=== PATIENT | male | born 1965 | race Caucasian/White ===

== ENCOUNTER 2018-10-12 08:21 | Day surgery (SDC) | payer BC, OTHER ==
[2018-10-12] MEDS ORDERED: LACTATED RINGERS 1,000 ML IV ONE (08:51)
[2018-10-12] MEDS ORDERED: MIDAZOLAM 2 MG/2 ML VIAL IVP ONE (10:06)
[2018-10-12] MEDS ORDERED: fentaNYL 250 MCG/5 ML VIAL IVP ONE (10:06)
[2018-10-12 11:35] VITALS: BP 127/88
== END 2018-10-12 08:22 | disposition home or self-care (01) ==
LOC: SDS 08:21
PROVIDERS: ATTEND Surgery
PROC: 0DJD8ZZ Inspection of Lower Intestinal Tract, Via Natural or Artificial Opening Endoscopic (ICD-10-PCS; principal; 2018-10-12 09:45)
DX: Z12.11 Encounter for screening for malignant neoplasm of colon (principal); K57.30 Diverticulosis of large intestine without perforation or abscess without bleeding; K64.8 Other hemorrhoids; Z80.9 Family history of malignant neoplasm, unspecified
CPT/HCPCS: 45378; J3010; J7120

== ENCOUNTER 2019-12-05 08:00 | Outpatient (CLI) | payer BC ==
[2019-12-05 11:56] LABS: BASOPHILS # (AUTO) 0.1 10^3/uL (0.0-0.1); BASOPHILS % (AUTO) 0.9 %; EOSINOPHILS # (AUTO) 0.2 10^3/uL (0.0-0.7); EOSINOPHILS % (AUTO) 2.7 %; HGB - HEMOGLOBIN 14.8 g/dL (14.0-18.0); LYMPHOCYTES # (AUTO) 1.1 10^3/uL (1.5-3.5); LYMPHOCYTES % (AUTO) 19.3 %; MEAN CORPUSCULAR HEMOGLOBIN 28.6 pg (27.0-31.0); MEAN CORPUSCULAR HGB CONC 33.2 g/dL (32.0-36.0); MEAN CORPUSCULAR VOLUME 86.3 fL (80.0-94.0); MEAN PLATELET VOLUME 11.2 fL (7.4-11.4); MONOCYTES # (AUTO) 0.4 10^3/uL (0.0-1.0); MONOCYTES % (AUTO) 7.9 %; NEUTROPHILS # (AUTO) 3.8 10^3/uL (1.5-6.6); NEUTROPHILS % (AUTO) 68.8 %; PLT - PLATELET COUNT 229 10^3/uL (130-450); RED BLOOD COUNT 5.17 10^6/uL (4.70-6.10); RED CELL DISTRIBUTION WIDTH 13.1 % (12.0-15.0); WHITE BLOOD COUNT 5.5 x10^3/uL (4.8-10.8)
[2019-12-05 12:13] LABS: ALBUMIN 4.5 g/dL (3.2-5.5); ALKALINE PHOSPHATASE 54 IU/L (42-121); ALT ALANINE AMINOTRANSFERASE 39 IU/L (10-60); AST ASPARTATE AMINOTRANSFERASE 29 IU/L (10-42); BILIRUBIN,TOTAL 0.9 mg/dL (0.2-1.0); BUN - BLOOD UREA NITROGEN 20 mg/dL (6-20); CALCIUM 9.2 mg/dL (8.5-10.3); CARBON DIOXIDE - CO2 26 mmol/L (21-32); CHLORIDE 104 mmol/L (101-111); CHOL/HDL RATIO 4.4 (<5.0); CHOLESTEROL 206 mg/dL; GLUCOSE 113 mg/dL (70-100); HDL CHOLESTEROL 47 mg/dL; LDL CHOLESTEROL,CALCULATED 123 mg/dL; LDL/HDL RATIO 2.6 (<3.6); SODIUM 139 mmol/L (135-145); TOTAL PROTEIN 6.8 g/dL (6.7-8.2); VLDL CHOLESTEROL 36 mg/dL
== END 2019-12-05 23:59 | disposition home or self-care (01) ==
LOC: LAB.WCP 08:00
PROVIDERS: ATTEND Family Medicine
DX: E78.5 Hyperlipidemia, unspecified (principal); R73.9 Hyperglycemia, unspecified; Z12.5 Encounter for screening for malignant neoplasm of prostate
CPT/HCPCS: 36415; 80053; 80061; 83721; 84153; 84443; 85025

== ENCOUNTER 2020-04-25 14:38 | Emergency (ER) | payer BC ==
[2020-04-25] MEDS ORDERED: ASPIRIN CHEW 81 MG TABLET PO STA (14:46)
[2020-04-25] MEDS ORDERED: NITROGLYCERIN SL 0.4 MG TABLET SL STA (14:46)
--- NOTE | 2020-04-25 14:49 | ED Physician Documentation ---
PD HPI CHEST PAIN - Stated complaint Stated Complaint: CPSOA - Chief complaint Chief Complaint: Cardiac - History obtained from History obtained from: Patient - Additional information Additional information: Had substernal chest pressure with shortness of breath since about 9 AM. He thought it was just stress at work, but despite a lunch break it did not get any better. It is nonradiating, does not change with exertion. He denies cough or recent travel. He has borderline hypertension, otherwise no identifiable risk factors for heart disease, no family history, diabetes. He never smoked. Review of Systems Ten Systems: 10 systems reviewed and negative Constitutional: denies: Fever, Chills, Sweats Cardiac: reports: Chest pain / pressure. denies: Palpitations, Pedal edema, Calf pain Respiratory: reports: Dyspnea. denies: Cough, Hemoptysis, Wheezing GI: denies: Nausea PD PAST MEDICAL HISTORY - Past Medical History Cardiovascular: None Respiratory: None Endocrine/Autoimmune: None GI: GERD : None HEENT: Chronic hearing loss Psych: None Musculoskeletal: Chronic back pain Derm: None - Past Surgical History Ortho: Carpal Tunnel surgery, Spine surgery HEENT: Other - Present Medications Home Medications: Ambulatory Orders Medication Instructions Recorded Confirmed Cyclobenzaprine [Flexeril] 10 mg PO PRN PRN 10/11/18 04/25/20 Meloxicam 7.5 mg PO BID 10/11/18 04/25/20 traMADol [Ultram] 50 mg PO PRN PRN 10/11/18 04/25/20 Multivitamin [Multiple Vitamins] 1 tab PO DAILY 10/12/18 04/25/20 Vit B Comp No.3/Folic/C/Biotin 1 tab PO DAILY 10/12/18 04/25/20 [Nephro-Beba Rx Tablet] Atorvastatin [Lipitor] 10 mg PO DAILY 04/25/20 04/25/20 Latanoprost 0.005% Ophth Drops 0.005 drops .ROUTE DAILY 04/25/20 04/25/20 [Xalatan Ophth Drops] Timolol 0.5% Ophth Drops [Timoptic 0.5 ml .ROUTE BID 04/25/20 04/25/20 0.5% Ophth Drops] - Allergies Allergies/Adverse Reactions: Allergies Allergy/AdvReac Type Severity Reaction Status Date / Time meperidine [From Demerol] Allergy Nausea Verified 04/25/20 15:00 acetaminophen [From Vicodin] AdvReac Unknown Verified 04/25/20 15:00 hydrocodone [From Vicodin] AdvReac Unknown Verified 04/25/20 15:00 - Social History Does the pt smoke?: No - Family History Family history: reports: Non contributory. denies: CAD PD ED PE NORMAL - Vitals Vital signs reviewed: Yes - General General: Alert and oriented X 3, No acute distress - HEENT HEENT: PERRL, EOMI - Neck Neck: Supple, no meningeal sign, No bony TTP - Cardiac Cardiac: RRR, No murmur - Respiratory Respiratory: No respiratory distress, Clear bilaterally - Abdomen Abdomen: Normal bowel sounds, Soft, Non tender - Back Back: No CVA TTP, No spinal TTP - Derm Derm: Normal color, Warm and dry - Extremities Extremities: No edema, No calf tenderness / cord - Neuro Neuro: Alert and oriented X 3, Normal speech Results - Vitals Vitals: Vital Signs - 24 hr 04/25/20 04/25/20 04/25/20 14:40 14:49 14:59 Temperature 36.2 C L Heart Rate 83 78 93 Respiratory 11 L 10 L 15 Rate Blood Pressure 180/91 H 172/94 H 141/85 H O2 Saturation 100 99 97 04/25/20 04/25/20 04/25/20 15:04 15:41 16:00 Temperature Heart Rate 87 79 80 Respiratory 12 20 10 L Rate Blood Pressure 143/92 H 154/84 H 143/87 H O2 Saturation 98 98 100 04/25/20 16:55 Temperature Heart Rate 78 Respiratory 19 Rate Blood Pressure 143/74 H O2 Saturation 99 Oxygen O2 Source Room air - EKG (time done) 1438 Rate: Rate (enter#) (76) Rhythm: NSR, LAE [place]: Normal Intervals: Normal [place] QRS: LVH Ischemia: No: ST elevation c/w ischemia Computer interpretation: Agree with computer - Labs Labs: Laboratory Tests 04/25/20 04/25/20 04/25/20 14:42 14:42 14:42 WBC 7.5 RBC 5.19 Hgb 14.9 Hct 44.0 MCV 84.8 MCH 28.7 MCHC 33.9 RDW 12.6 Plt Count 240 MPV 10.5 Neut # (Auto) 5.4 Lymph # (Auto) 1.4 L Stark # (Auto) 0.5 Eos # (Auto) 0.1 Baso # (Auto) 0.0 Absolute Nucleated RBC 0.00 Nucleated RBC % 0.0 Sodium 140 Potassium 3.8 Chloride 101 Carbon Dioxide 27 Anion Gap 12.0 BUN 23 H Creatinine 1.2 Estimated GFR (MDRD) 64 L Glucose 100 Calcium 9.3 Total Bilirubin 0.7 AST 32 ALT 45 Alkaline Phosphatase 62 Troponin I High Sens 2.8 Total Protein 7.1 Albumin 4.5 Globulin 2.6 Albumin/Globulin Ratio 1.7 Lipase 34 04/25/20 16:40 WBC RBC Hgb Hct MCV MCH MCHC RDW Plt Count MPV Neut # (Auto) Lymph # (Auto) Stark # (Auto) Eos # (Auto) Baso # (Auto) Absolute Nucleated RBC Nucleated RBC % Sodium Potassium Chloride Carbon Dioxide Anion Gap BUN Creatinine Estimated GFR (MDRD) Glucose Calcium Total Bilirubin AST ALT Alkaline Phosphatase Troponin I High Sens 2.7 Total Protein Albumin Globulin Albumin/Globulin Ratio Lipase PD MEDICAL DECISION MAKING - ED course ED course: Heart score 3 with delta troponins done in the emergency department and both on the low side. He was pain-free shortly after arrival in the department and remained that way. Advised follow-up with PCP for consideration for stress testing and discussed need to return if pain recurs. Departure - Departure Disposition: 01 Home, Self Care Clinical Impression: Chest pain Qualifiers: Chest pain type: unspecified Qualified Code(s): R07.9 - Chest pain, unspecified Condition: Good Record reviewed to determine appropriate education?: Yes Instructions: ED Chest Pain NonCardiac Comments: Her testing today was normal including EKG, chest x-ray, and 2 sets of troponins. It is unclear what caused your chest pain, but that said you still need to return if it recurs and follow-up with your doctor for consideration of stress testing, next available appointment. Discharge Date/Time: 04/25/20 17:24
[2020-04-25 14:52] LABS: BASOPHILS % (AUTO) 0.5 %; EOSINOPHILS # (AUTO) 0.1 10^3/uL (0.0-0.7); EOSINOPHILS % (AUTO) 1.7 %; HGB - HEMOGLOBIN 14.9 g/dL (14.0-18.0); LYMPHOCYTES # (AUTO) 1.4 10^3/uL (1.5-3.5); LYMPHOCYTES % (AUTO) 18.8 %; MEAN CORPUSCULAR HEMOGLOBIN 28.7 pg (27.0-31.0); MEAN CORPUSCULAR HGB CONC 33.9 g/dL (32.0-36.0); MEAN CORPUSCULAR VOLUME 84.8 fL (80.0-94.0); MEAN PLATELET VOLUME 10.5 fL (7.4-11.4); MONOCYTES # (AUTO) 0.5 10^3/uL (0.0-1.0); MONOCYTES % (AUTO) 6.1 %; NEUTROPHILS # (AUTO) 5.4 10^3/uL (1.5-6.6); NEUTROPHILS % (AUTO) 72.5 %; PLT - PLATELET COUNT 240 10^3/uL (130-450); RED BLOOD COUNT 5.19 10^6/uL (4.70-6.10); RED CELL DISTRIBUTION WIDTH 12.6 % (12.0-15.0); WHITE BLOOD COUNT 7.5 x10^3/uL (4.8-10.8)
[2020-04-25 15:04] LABS: ALBUMIN 4.5 g/dL (3.2-5.5); ALBUMIN/GLOBULIN RATIO 1.7 (1.0-2.2); BILIRUBIN,TOTAL 0.7 mg/dL (0.2-1.0); CALCIUM 9.3 mg/dL (8.5-10.3); CREATININE 1.2 mg/dL (0.6-1.2); TOTAL PROTEIN 7.1 g/dL (6.7-8.2)
--- NOTE | 2020-04-25 15:06 | XRAY Report ---
PROCEDURE: Chest 1 View X-Ray INDICATIONS: Chest Pain TECHNIQUE: One view of the chest was acquired. COMPARISON: Chest x-ray 11/16/2014 FINDINGS: Surgical changes and devices: None. Lungs and pleura: No pleural effusions or pneumothorax. Lungs are clear. Mediastinum: Mediastinal contours appear normal. Heart size is normal. Bones and chest wall: No suspicious bony lesions. Overlying soft tissues appear unremarkable. IMPRESSION: No acute pulmonary process. Reviewed by: Tram Johnson MD on 04/25/2020 2:04 PM [facility] Approved by: Tram Johnson MD on 04/25/2020 2:04 PM [facility] Station ID: [id number]
[2020-04-25 16:56] VITALS: BP 143/74
== END 2020-04-25 17:24 | disposition home or self-care (01) ==
LOC: ED 14:38
DX: R07.89 Other chest pain (principal); I45.10 Unspecified right bundle-branch block; I10 Essential (primary) hypertension
CPT/HCPCS: 36415; 71045; 80053; 83690; 84484; 85025; 93005; 99284; A9270

== ENCOUNTER 2020-12-06 09:22 | Outpatient (CLI) | payer BC ==
[2020-12-06 14:23] LABS: BASOPHILS % (AUTO) 0.8 %; EOSINOPHILS # (AUTO) 0.1 10^3/uL (0.0-0.7); EOSINOPHILS % (AUTO) 2.6 %; HCT - HEMATOCRIT 46.1 % (42.0-52.0); HGB - HEMOGLOBIN 15.4 g/dL (14.0-18.0); LYMPHOCYTES % (AUTO) 20.5 %; MEAN CORPUSCULAR HEMOGLOBIN 28.6 pg (27.0-31.0); MEAN CORPUSCULAR HGB CONC 33.4 g/dL (32.0-36.0); MEAN CORPUSCULAR VOLUME 85.7 fL (80.0-94.0); MEAN PLATELET VOLUME 11.3 fL (7.4-11.4); MONOCYTES # (AUTO) 0.4 10^3/uL (0.0-1.0); MONOCYTES % (AUTO) 7.9 %; NEUTROPHILS # (AUTO) 3.5 10^3/uL (1.5-6.6); NEUTROPHILS % (AUTO) 67.8 %; PLT - PLATELET COUNT 249 10^3/uL (130-450); RED BLOOD COUNT 5.38 10^6/uL (4.70-6.10); RED CELL DISTRIBUTION WIDTH 13.2 % (12.0-15.0); WHITE BLOOD COUNT 5.1 x10^3/uL (4.8-10.8)
[2020-12-06 14:49] LABS: ALBUMIN 4.8 g/dL (3.2-5.5); ALBUMIN/GLOBULIN RATIO 1.9 (1.0-2.2); ALKALINE PHOSPHATASE 64 IU/L (42-121); ALT ALANINE AMINOTRANSFERASE 39 IU/L (10-60); AST ASPARTATE AMINOTRANSFERASE 32 IU/L (10-42); BILIRUBIN,TOTAL 0.8 mg/dL (0.2-1.0); BUN - BLOOD UREA NITROGEN 26 mg/dL (6-20); CALCIUM 9.5 mg/dL (8.5-10.3); CARBON DIOXIDE - CO2 28 mmol/L (21-32); CHLORIDE 105 mmol/L (101-111); CHOL/HDL RATIO 4.5 (<5.0); CHOLESTEROL 234 mg/dL; CREATININE 1.1 mg/dL (0.6-1.2); GFR - MDRD 70 (>89); GLUCOSE 109 mg/dL (70-100); HDL CHOLESTEROL 52 mg/dL; LDL CHOLESTEROL,CALCULATED 155 mg/dL; POTASSIUM 4.6 mmol/L (3.5-5.0); SODIUM 140 mmol/L (135-145); TOTAL PROTEIN 7.3 g/dL (6.7-8.2); TRIGLYCERIDES 137 mg/dL; VLDL CHOLESTEROL 27 mg/dL
[2020-12-06 15:00] LABS: THYROID STIMULATING HORMONE 1.05 uIU/mL (0.34-5.60)
[2020-12-06 21:00] LABS: ESTIMATED AVERAGE GLUCOSE 108 mg/dL (70-100); HEMOGLOBIN A1c% 5.4 % (4.27-6.07)
== END 2020-12-06 09:23 | disposition home or self-care (01) ==
LOC: LAB.N 09:22
PROVIDERS: ATTEND Physician Assistant Medical
DX: Z00.00 Encounter for general adult medical examination without abnormal findings (principal); E78.5 Hyperlipidemia, unspecified; R73.9 Hyperglycemia, unspecified; K21.9 Gastro-esophageal reflux disease without esophagitis; Z12.5 Encounter for screening for malignant neoplasm of prostate
CPT/HCPCS: 36415; 80053; 80061; 83036; 83721; 84153; 84443; 85025

== ENCOUNTER 2020-12-18 16:11 | Outpatient (CLI) | payer BC ==
[2020-12-18 16:56] VITALS: BP 149/90
--- NOTE | 2020-12-18 16:56 | SLEEP CARE CONSULTATION ---
Information from patient questionnaire entered by April Almodovar. I have reviewed and concur with the information entered by April Almodovar. This document represents the service I personally performed and the decisions made by me, Mona Holt ARNP. History of Present Illness Service Date and Time: 12/18/2020 1611 Reason for Visit: New patient Chief Complaint: reports: Unrefreshed sleep, Snoring, Excessive daytime sleepiness (worse in afternoon), Observed pauses in breathing, Fatigue, Frequent awakenings at night Date of Onset: 3-4 years Usual bedtime: 9:30 - 10:00 Time it takes to fall asleep: 10-15 minutes Snores at night: Yes Observed to quit breathing while asleep: Yes Sleeps alone due to snoring: No Number of times waking at night: 2-4 Reasons for waking at night: reports: Snoring, Gasping for air, Pain, Bathroom Toss, Turn, or Twitch while sleeping: Yes Recalls having dreams: Yes Usually gets out of bed at: 5:45 - 6:00 Feels refreshed in the morning: No Morning headache: No Sleepy or fatigued during the day: Yes Ever fallen asleep while driving: No Takes day naps: No Dreams during day naps: No Prior sleep studies: No Additional HPI information: I had the pleasure of seeing SERGO SANTANA today regarding the possibility of him having a sleep disorder. His current complaints are fatigue, frequent night awakenings, insomnia, observed pauses in breathing, snoring and unrefreshed sleep. He states he is very tired throughout the day. He snores loudly but his still sleeps in same bed. She has noted some pauses in breathing, he is gasping and waking himself up. He had a stress test and it was suggested that he should have a sleep study. He states at the end of the day he gets "super tired". He does not wake up in the morning feeling refreshed. He has had 4 lower back fusions and sometimes the pain will keep him awake. He wakes up several times a night for the bathroom as well. - Parasomnia Symptoms Ever been unable to move upon waking from sleep: No Walks in sleep: No Talks in sleep: Yes Ever acted out dreams in sleep: Yes (punched in the back) Ever felt weak in the knees when startled or emotional: No Bothered by creepy, crawly, restless sensations in legs: No Problems with memory or concentration: Yes (Memory getting bad; has hard time with reading comprehension) Subjective Initial Rosie Sleepiness Scale score: 10 (in 2020) Past Medical History Past Medical History: reports: Claustrophobia, Arthritis, Other (Lower spine fusions; 18-19 ear surgeries due to cysts in ears) Social History 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 Patient is and lives in [place]. Have you smoked in the past 12 months: No Alcohol use: Yes Alcohol amount and frequency: 12 beers a week Caffeine use: Yes Caffeine amount and frequency: 4 coffees daily Family History Family history of sleep disordered breathing: Yes Family Hx Sleep Apnea: Father: Sleep apnea - Treated (Has since ) Allergies and Home Medications Drug allergies reviewed: Yes (demerol, acetaminophen, hydrocodone) Home medication list reviewed: Yes Allergy and home medication list: 1 a day vitamin L-Lysine Duloxetine Atorvastatin Meloxicam D3 Tramadol, prn Cyclobenzaprine, prn Latenoprost 0.005% Timolol 0.5% Zovirax Review of Systems Gastrointestinal: reports: heartburn Urinary: reports: frequency Psychiatric: reports: claustrophobia. denies: anxiety, depression Ear/Nose/Throat: reports: wisdom teeth removed. denies: sinus problems, injury to nose, tonsillectomy Endocrine: denies: thyroid disease Musculoskeletal: reports: back pain Immunologic: denies: allergies to food or environment Physical Exam Blood Pressure: 149/90 (right) Cuff size: wrist Heart Rate: 75 O2 Saturation: 98 Height: 6 ft 2 in Weight: 234 lb Body Mass Index: 30.0 BMI Classification: Obese Neck circumference: 17 (inches) Nostrils: patent to airflow Mouth and throat: narrow oropharynx Soft palate: long Hard palate: normal Uvula: normal Uvula visualization: 25% Mallampati Class III Tongue: enlarged in size with teeth connors on lateral edges Tonsils: small Neck: normal w/o lymphadenopathy or thyromegaly Heart: regular rate and rhythm Lungs: clear bilaterally Impression and Plan 1. Suspected Obstructive Sleep Apnea-Hypopnea Syndrome, as suggested by a histor y of loud and irregular snoring, observed cessation of breath while asleep, gasping or choking in sleep, frequent awakening during the night, unrefreshed sleep, cognitive impairment, and excessive daytime sleepiness. Narrow oropharynx and obesity are common predisposing factors for obstructive sleep apnea-hypopnea syndrome. I recommend proceeding to polysomnography to confirm the diagnosis and to assess severity. If the patient has significant sleep disordered breathing, a manual CPAP titration study will also be performed to find the optimal treatment pressure. I informed the patient of what the sleep studies involve and after some discussion, obtained agreement to proceed. The pathophysiology of obstructive sleep apnea-hypopnea syndrome was discussed with the patient and health risks of cardiovascular and cerebrovascular disease if not treated. AAS brochure for obstructive sleep apnea-hypopnea syndrome given and reviewed. Risks of drowsy driving discussed in detail and patient advised to avoid long distance driving and to pull worker at the first sign of drowsiness. Patient agreed to plan. * Schedule polysomnography +- manual CPAP titration study and return in 1-2 weeks after the study to discuss result and initiate therapy. * Avoid long distance driving or driving when feeling sleepy. * Avoid alcohol, sedative and muscle relaxant around bedtime. * Attempt to lose weight. * Review instructions provided by trained office staff on how to prepare for the sleep study. * Return for follow-up after sleep study completed. Counseling Topics: Weight loss health impact, Activity level Visit Type: In Office Time Spent with Patient (minutes): 30 Provider Statement: I spent 100% of the Face to Face Visit with the patient with greater than 50% spent counseling the patient and coordination of care.
== END 2020-12-18 16:12 | disposition home or self-care (01) ==
LOC: SC 16:11
PROVIDERS: ATTEND Nurse Practitioner Family
DX: G47.10 Hypersomnia, unspecified (principal); G47.8 Other sleep disorders; R41.89 Other symptoms and signs involving cognitive functions and awareness; R06.81 Apnea, not elsewhere classified; R06.83 Snoring; E66.9 Obesity, unspecified; Z68.30 Body mass index [BMI] 30.0-30.9, adult
CPT/HCPCS: 99203; 99212

== ENCOUNTER 2021-01-22 18:48 | Emergency (ER) | payer BC ==
--- NOTE | 2021-01-22 19:16 | ED Physician Documentation ---
PD HPI UPPER EXT INJURY - Stated complaint Stated Complaint: LT HAND LAC - Chief complaint Chief Complaint: Laceration - History obtained from History obtained from: Patient - History of Present Illness Location: Left, Finger Type of injury: Laceration Where injury occurred: Home Timing - onset: How many hours ago (1) Pain level now: 2 Associated symptoms: No: Weakness, Numbness Contributing factors: No: Anticoagulated Recently seen: Not recently seen - Additonal information Additional information: Approximately 1 hour [employer], accidentally lacerated left second finger when he was cutting turkey. He is right hand dominant. UTD on tetanus (last booster was 2018). His chief concern is persistent bleeding from the laceration Review of Systems Skin: reports: Laceration (s) Neurologic: denies: Focal weakness, Numbness PD PAST MEDICAL HISTORY - Past Medical History Cardiovascular: None Respiratory: None Endocrine/Autoimmune: None GI: GERD : None HEENT: Chronic hearing loss Psych: None Musculoskeletal: Chronic back pain Derm: None - Past Surgical History Past Surgical History: Yes Ortho: Carpal Tunnel surgery, Spine surgery HEENT: Other - Present Medications Home Medications: Ambulatory Orders Medication Instructions Recorded Confirmed Cyclobenzaprine [Flexeril] 10 mg PO PRN PRN 10/11/18 04/25/20 Meloxicam 7.5 mg PO BID 10/11/18 04/25/20 traMADol [Ultram] 50 mg PO PRN PRN 10/11/18 04/25/20 Multivitamin [Multiple Vitamins] 1 tab PO DAILY 10/12/18 04/25/20 Vit B Comp No.3/Folic/C/Biotin 1 tab PO DAILY 10/12/18 04/25/20 [Nephro-Beba Rx Tablet] Atorvastatin [Lipitor] 10 mg PO DAILY 04/25/20 04/25/20 Latanoprost 0.005% Ophth Drops 0.005 drops .ROUTE DAILY 04/25/20 04/25/20 [Xalatan Ophth Drops] Timolol 0.5% Ophth Drops [Timoptic 0.5 ml .ROUTE BID 04/25/20 04/25/20 0.5% Ophth Drops] - Allergies Allergies/Adverse Reactions: Allergies Allergy/AdvReac Type Severity Reaction Status Date / Time meperidine [From Demerol] Allergy Nausea Verified 01/22/21 18:51 acetaminophen [From Vicodin] AdvReac Unknown Verified 01/22/21 18:51 hydrocodone [From Vicodin] AdvReac Unknown Verified 01/22/21 18:51 - Social History Does the pt smoke?: No Smoking Status: Never smoker Does the pt drink ETOH?: Yes Does the pt have substance abuse?: No - Immunizations Immunizations are current?: Yes - POLST Patient has POLST: No PD ED PE NORMAL - Vitals Vital signs reviewed: Yes - General General: Alert and oriented X 3, No acute distress, Well developed/nourished - Neuro Neuro: No motor deficit, No sensory deficit PD ED PE EXPANDED - Extremities Extremities: Other (left second finger: near-avulsion of tip without nail involvement. The area involved is approximately 0.5 cm diameter and 2-3 mm in maximum thickness. There is brisk, steady bleeding from the wound which isolates to a punctate area when proximal tourniquet applied) Results - Vitals Vitals: Vital Signs - 24 hr 01/22/21 18:51 Temperature 36.6 C Heart Rate 82 Respiratory 16 Rate Blood Pressure 133/58 H O2 Saturation 97 Oxygen O2 Source Room air Procedures - Laceration (location) Finger left Length in cm: 1.5 Wound type: Flap, Superficial Neurovascular status: Other (decreased sensation of flap but otherwise LTS intact) Skin layer closure: Dermabond, Other (ster-strips placed after adequate drying time for dermabond) Other: Patient tolerated well, No complications, Neurovascular intact (decreased sensation of flap but otherwise LTS intact), Dressing applied, Tetanus UTD PD MEDICAL DECISION MAKING - ED course Complexity details: considered differential, d/w patient ED course: after initial exam , during which steady brisk bleeding was noted, I prepared equipment for repair including lidocaine, dermabond, steri-strips, and silver nitrate. When I went to repair the wound, it had stopped bleeding and thus lidocaine/silver nitrate was not used. dermabond was placed with good wound edge approximation, and this was followed by ster-strips to increase strength and integrity of repair Departure - Departure Disposition: 01 Home, Self Care Clinical Impression: Injury of tip of finger Condition: Good Instructions: ED Laceration Ext Skin Glue, ED Avulsion Dermal
[2021-01-22] MEDS: LIDOCAINE 1% 2 ML VIAL SUBQ STA (19:46)
[2021-01-22] MEDS: SILVER NITRATE APPLICATOR TOP STA (19:47)
[2021-01-22 20:26] VITALS: BP 146/50
== END 2021-01-22 20:26 | disposition home or self-care (01) ==
LOC: ED 18:48
DX: S61.211A Laceration without foreign body of left index finger without damage to nail, initial encounter (principal); W26.0XXA Contact with knife, initial encounter; Y93.G1 Activity, food preparation and clean up; Y92.009 Unspecified place in unspecified non-institutional (private) residence as the place of occurrence of the external cause
CPT/HCPCS: 12001; 99282

== ENCOUNTER 2022-03-03 09:23 | Outpatient (CLI) | payer BC | END 2022-03-03 09:24 | disposition short-term general hospital (02) | LOC: EMS 09:23 | DX: M54.9 Dorsalgia, unspecified (principal); M62.830 Muscle spasm of back | CPT/HCPCS: A0425; A0427 ==

== ENCOUNTER 2022-03-07 20:24 | Outpatient (CLI) | payer BC | END 2022-03-07 20:25 | disposition critical access hospital (66) | LOC: EMS 20:24 | DX: M54.50 Low back pain, unspecified (principal); W18.30XA Fall on same level, unspecified, initial encounter; Y93.01 Activity, walking, marching and hiking; Y92.002 Bathroom of unspecified non-institutional (private) residence as the place of occurrence of the external cause | CPT/HCPCS: A0425; A0427 ==

== ENCOUNTER 2022-05-06 15:30 | Outpatient (CLI) | payer BC ==
--- NOTE | 2022-05-06 16:03 | SLEEP CARE CONSULTATION ---
Information from patient questionnaire entered by Arlene De Oliveira. I have reviewed and concur with the information entered by Arlene De Oliveira. This document represents the service I personally performed and the decisions made by me, Mona Holt ARNP. History of Present Illness Service Date and Time: 05/06/2022 1530 Reason for follow up: annual (LAST SEEN POS CPAP NO STUDY DONE) Prior sleep studies: No HPI additional information: I had the pleasure of seeing SERGO SANTANA today regarding the possibility of him having a sleep disorder. His current complaints are snoring, observed pauses in breathing, frequent night awakenings, unrefreshed sleep and excessive daytime sleepiness. The patient tells me that he normally goes to bed around 9-9:30 pm, and it takes him approximately 30 minutes to fall asleep. He has been told that he snores loudly and irregularly at night. He has been observed to stop breathing in his sleep. His bed partner can still sleep in the same bed. He can recall waking up on the average of 1-2 times during the night. Most of the time he wakes up because of unknown reasons. He has occasionally awakened for his own snoring. There is a lot of tossing and turning in his sleep. Generally he can recall having dreams. He usually wakes up at 0530 and feels refreshed. He usually does not have a morning headache. During the day he complains of feeling sleepy and fatigued. He has never fallen asleep while driving nor has any accident due to sleepiness. He usually does not take naps during the day. If he naps, upon falling asleep during the day he denies to having vivid dreams. There is somniloquy (sleep talking) but no somnambulism (sleep walking). He has never experienced sleep paralysis, cataplexy, or symptoms of restless leg syndrome. He reports having impaired concentration during the day. Sleep Study - Results Prior sleep studies: No Subjective Initial [place] Sleepiness Scale score: 10 (in 2020) Current [place] Sleepiness Scale score: 10 (05/06/22) Allergies and Home Medications Known drug allergies: Yes (meperidine, acetaminophen, hydrocodone) Drug allergies reviewed: Yes Home medication list reviewed: Yes (see updated meds in EMR) Review of Systems Review of systems same as previous: No (L3-L4 fusion Mar 08, 2022) Physical Exam Vital signs obtained and entered by: ARLENE Argueta MA Blood Pressure: 146/80 (LEFT ARM) Cuff size: regular Heart Rate: 96 O2 Saturation: 97 Height: 6 ft 2 in Weight: 237 lb 12.8 oz Body Mass Index: 30.5 BMI Classification: Obese Impression and Plan 1. Suspected Obstructive Sleep Apnea-Hypopnea Syndrome, as suggested by a history of loud and irregular snoring, observed cessation of breath while asleep, gasping or choking in sleep, frequent awakening during the night, unrefreshed sleep, cognitive impairment, and excessive daytime sleepiness. Sergo states he was not approved for a sleep study last time by his insurance because they did not cover at [facility] and that is why it was never completed. He spoke with them recently and they now say that it should be covered with us. I recommend proceeding to polysomnography to confirm the diagnosis and to assess severity. I obtained agreement to proceed. The pathophysiology of obstructive sleep apnea-hypopnea syndrome was discussed with the patient and health risks of cardiovascular and cerebrovascular disease if not treated. Risks of drowsy driving discussed in detail and patient advised to avoid long distance driving and to overhead cleaner at the first sign of drowsiness. Patient agreed to plan. 2. Obesity, unspecified. Currently patients BMI is 30.5. Obesity increases the risk of apnea, CPAP pressure requirements and overall health risks especially cardiovascular and diabetes. Thus patient is advised to lose weight. * Schedule polysomnography * Avoid long distance driving or driving when feeling sleepy. * Avoid alcohol, sedative and muscle relaxant around bedtime. * Attempt to lose weight. * Review instructions provided by trained office staff on how to prepare for the sleep study. * Return for follow-up after sleep study completed. Counseling Topics: Weight loss health impact Visit Type: In Office Time Spent with Patient (minutes): 20 Provider Statement: I spent 100% of the Face to Face Visit with the patient with greater than 50% spent counseling the patient and coordination of care.
[2022-05-06 16:04] VITALS: BP 146/80
== END 2022-05-06 15:31 | disposition home or self-care (01) ==
LOC: SC 15:30
PROVIDERS: ATTEND Nurse Practitioner Family
DX: G47.10 Hypersomnia, unspecified (principal); R53.83 Other fatigue; G47.8 Other sleep disorders; R06.83 Snoring; E66.9 Obesity, unspecified; Z68.30 Body mass index [BMI] 30.0-30.9, adult
CPT/HCPCS: 99212; 99213

== ENCOUNTER 2022-06-22 15:00 | Outpatient (CLI) | payer BC | END 2022-06-22 15:01 | disposition home or self-care (01) | LOC: SC 15:00 | PROVIDERS: ATTEND Nurse Practitioner Family | DX: G47.33 Obstructive sleep apnea (adult) (pediatric) (principal); R09.02 Hypoxemia | CPT/HCPCS: 95806 ==

== ENCOUNTER 2022-07-27 15:52 | Outpatient (CLI) | payer BC ==
--- NOTE | 2022-07-27 16:44 | Sleep Patient Instructions ---
Sleep Center Visit Summary - Patient Visit Information Reason for Visit: Sleep study followup - Patient Instructions Instructions Attached: CPAP, CPAP Dc Additional Instructions: You are being started on CPAP therapy with pressure setting at 4-15 cmH2O. You will need to call the sleep care office to set up your follow up once you have your APAP machine and we will schedule a visit to check compliance and response to therapy at that time. You may call the office with any concerns about pressure feeling too low or too much for adjustment, if needed. You should contact DME for any questions or concerns about mask or equipment. Please follow up in the sleep care office one month after obtaining CPAP. Please call to make that appointment. - Clinic Information Contact: [facility] [address] [place] [address] [email or web address] T: [phone]
--- NOTE | 2022-07-27 16:46 | SLEEP CARE CONSULTATION ---
Information from patient questionnaire entered by Arlene De Oliveira. I have reviewed and concur with the information entered by Arlene De Oliveira. This document represents the service I personally performed and the decisions made by me, Mona Holt ARNP. History of Present Illness Service Date and Time: 07/27/2022 1552 Initial [place] Sleepiness Scale score: 10 (in 2020) Current [place] Sleepiness Scale score: 6 (07/27/22) Additional HPI information: SERGO SANTANA returns for follow up and results of the recently performed home sleep study. I explained the pathophysiology behind obstructive sleep apnea. We then spent quite a bit of time discussing different treatment options. For mild obstructive sleep apnea, surgery and oral appliance are alternatives to nasal CPAP therapy but in moderate or severe cases, nasal CPAP is the most effective and reliable treatment. Because apnea is primarily in supine position, then positional management therapy could be effective. Methods discussed such as positioning with pillows, using a T-shirt with tennis balls in the back or commercial products that have a pillow format on back to prevent supine sleep. I reviewed the impact of weight changes on sleep apnea and strongly recommended losing weight. After some discussion, the patient opted to go with the nasal CPAP therapy. Nasal autoCPAP set at 4-15 cmH20 will be ordered with rationale explained. A manual titration study will be ordered if unable to find optimal pressure with office adjustments. I explained how CPAP machine works and what to expect when using the machine. Using CPAP every night in order to get used to it was emphasized. Patient advised to put CPAP mask on before getting into bed so as not to fall asleep without CPAP. To assist acclimation to CPAP use, it could also be used for a short time during day while reading or watching TV. The patient was instructed to call the CPAP supplier to discuss any mechanical problem that may occur. If the mask given is uncomfortable or is difficult to keep on through the night even with adjustment, contact the CPAP supplier as many will replace with another mask style if notified before 30 days. If snoring or perceives is not getting enough air or too much air from the machine, notify this office. Patient counseled not drink alcohol less than 4 hours before bedtime as it can increase snoring and apnea. Patient was cautioned about risks of drowsy driving until sleepiness symptoms resolve. Patient denies drowsy driving. Sleep Study - Results Type of Sleep Study: Home sleep study (COMPLETED 06/22/22) Prior sleep studies: No Polysomnography/Home Sleep Study results: Physician Impression: The quality of the study is good. The length of the study is adequate (> 240 minutes). Please also see the tabulated and graphic data. 1. Obstructive Sleep Apnea-Hypopnea (ICD-10 G47.33), severe, with an AHI of 33.7/hr and shaunna SaO2 of 75%. During the study, the patient had 92 apneas (92 obstructive, 0 central, 0 mixed) and 153 hypopneas. The longest episode lasted 117.0 seconds. The respiratory events occurred predominantly during supine sleep (supine AHI was 44.0 and non-supine, 8.92). 2. Hypoxemia (ICD-10 R09.02), moderate, with the lowest oxygen saturation of 75 % and 56.7 minutes with SaO2 under 90%. Baseline oxygen saturation was normal (Average oxygen saturation was 92%). Allergies and Home Medications Known drug allergies: Yes (as listed) Drug allergies reviewed: Yes Home medication list reviewed: Yes (no changes) Allergy and home medication list: Allergies meperidine [From Demerol] Allergy (Verified 07/23/22 15:51) Nausea acetaminophen [From Vicodin] Adverse Reaction (Verified 07/23/22 15:51) Unknown hydrocodone [From Vicodin] Adverse Reaction (Verified 07/23/22 15:51) Unknown Review of Systems Review of systems same as previous: Yes (no changes) Physical Exam Vital signs obtained and entered by: ARLENE Argueta MA Blood Pressure: 124/68 (LEFT ARM) Cuff size: regular Heart Rate: 81 O2 Saturation: 97 Height: 6 ft 2 in Weight: 233 lb 6.4 oz Body Mass Index: 29.9 BMI Classification: Overweight Impression and Plan 1. Obstructive Sleep Apnea-Hypopnea Syndrome, severe, with lowest oxygen saturation of 75%. Obviously this is the cause of the patients symptoms of unrefreshed sleep, and excessive daytime sleepiness. As mentioned above, the patient will be started on nasal autoCPAP therapy with pressure set at 4-15 cmH2 O. A manual titration study will be completed if unable to find optimal treatment pressure with office adjustments. Compliance guidelines also reviewed. A copy of compliance guidelines will be given for reference at check out. Because the apnea is more severe supine, I instructed to avoid sleeping supine using pillow positioning until able to start CPAP use. 2. Hypoxemia, moderate, with the lowest oxygen saturation of 75 % and 56.7 minutes with SaO2 under 90%. His baseline oxygen saturation was normal with an average oxygen saturation of 92%. * Nasal auto CPAP therapy, pressure at 4-15 cm H2O. * Attempt to lose weight. * Avoid alcohol consumption near bedtime. * Avoid supine sleep until using CPAP. * The patient is again cautioned about driving until sleepiness completely resolves. * Return one month after CPAP obtained. I will assess response to therapy and compliance at that time. Counseling Topics: Sleeping position, Weight loss health impact Visit Type: In Office Time Spent with Patient (minutes): 20 Provider Statement: I spent 100% of the Face to Face Visit with the patient with greater than 50% spent counseling the patient and coordination of care.
[2022-07-27 17:13] VITALS: BP 124/68
== END 2022-07-27 15:53 | disposition home or self-care (01) ==
LOC: SC 15:52
PROVIDERS: ATTEND Nurse Practitioner Family
DX: G47.33 Obstructive sleep apnea (adult) (pediatric) (principal); R09.02 Hypoxemia; E66.3 Overweight; Z68.29 Body mass index [BMI] 29.0-29.9, adult
CPT/HCPCS: 99212; 99213

== ENCOUNTER 2022-08-12 08:16 | Outpatient (CLI) | payer BC ==
[2022-08-12 11:44] LABS: BASOPHILS % (AUTO) 0.3 %; EOSINOPHILS # (AUTO) 0.2 10^3/uL (0.0-0.7); EOSINOPHILS % (AUTO) 2.8 %; HCT - HEMATOCRIT 44.2 % (42.0-52.0); HGB - HEMOGLOBIN 14.3 g/dL (14.0-18.0); LYMPHOCYTES # (AUTO) 1.4 10^3/uL (1.5-3.5); LYMPHOCYTES % (AUTO) 22.7 %; MEAN CORPUSCULAR HEMOGLOBIN 26.7 pg (27.0-31.0); MEAN CORPUSCULAR HGB CONC 32.4 g/dL (32.0-36.0); MEAN CORPUSCULAR VOLUME 82.5 fL (80.0-94.0); MEAN PLATELET VOLUME 11.1 fL (7.4-11.4); MONOCYTES # (AUTO) 0.5 10^3/uL (0.0-1.0); MONOCYTES % (AUTO) 8.9 %; NEUTROPHILS # (AUTO) 3.9 10^3/uL (1.5-6.6); PLT - PLATELET COUNT 267 10^3/uL (130-450); RED BLOOD COUNT 5.36 10^6/uL (4.70-6.10); RED CELL DISTRIBUTION WIDTH 14.4 % (12.0-15.0)
[2022-08-12 12:10] LABS: ALBUMIN 4.2 g/dL (3.2-5.5); ALBUMIN/GLOBULIN RATIO 1.4 (1.0-2.2); ALKALINE PHOSPHATASE 77 IU/L (42-121); ALT ALANINE AMINOTRANSFERASE 41 IU/L (10-60); AST ASPARTATE AMINOTRANSFERASE 30 IU/L (10-42); BILIRUBIN,TOTAL 0.5 mg/dL (0.2-1.0); BUN - BLOOD UREA NITROGEN 22 mg/dL (6-20); CALCIUM 9.2 mg/dL (8.5-10.3); CARBON DIOXIDE - CO2 29 mmol/L (21-32); CHLORIDE 107 mmol/L (101-111); CHOL/HDL RATIO 4.4 (<5.0); CHOLESTEROL 196 mg/dL; CREATININE 1.1 mg/dL (0.6-1.2); GFR - MDRD 69 (>89); GLUCOSE 118 mg/dL (70-100); HDL CHOLESTEROL 45 mg/dL; LDL CHOLESTEROL,CALCULATED 117 mg/dL; LDL/HDL RATIO 2.6 (<3.6); POTASSIUM 4.7 mmol/L (3.5-5.0); SODIUM 141 mmol/L (135-145); TOTAL PROTEIN 7.3 g/dL (6.7-8.2); TRIGLYCERIDES 171 mg/dL; VLDL CHOLESTEROL 34 mg/dL
[2022-08-12 12:12] LABS: THYROID STIMULATING HORMONE 1.36 uIU/mL (0.34-5.60)
== END 2022-08-12 08:17 | disposition home or self-care (01) ==
LOC: LAB.N 08:16
PROVIDERS: ATTEND Physician Assistant Medical
DX: Z00.00 Encounter for general adult medical examination without abnormal findings (principal); E78.5 Hyperlipidemia, unspecified; Z12.5 Encounter for screening for malignant neoplasm of prostate
CPT/HCPCS: 36415; 80053; 80061; 83721; 84153; 84443; 85025

== ENCOUNTER 2022-10-06 16:06 | Outpatient (CLI) | payer BC ==
--- NOTE | 2022-10-06 16:29 | Sleep Patient Instructions ---
Sleep Center Visit Summary - Patient Visit Information Reason for Visit: First compliance visit for PAP therapy - Patient Instructions Additional Instructions: You were here for follow up of CPAP therapy. You will be continued on CPAP therapy with pressure at 9-11 cmH2O. Please let us know if the pressure change is uncomfortable and we can make further adjustments of the pressure. You should follow up with sleep care in 1-2 months. You may contact us sooner for any questions or concerns. - Clinic Information Contact: [facility] [address] [place] [address] [email or web address] T: [phone]
--- NOTE | 2022-10-06 16:32 | SLEEP CARE CONSULTATION ---
Information from patient questionnaire entered by Arlene De Oliveira. I have reviewed and concur with the information entered by Arlene De Oliveira. This document represents the service I personally performed and the decisions made by , Mona Holt ARNP. History of Present Illness Service Date and Time: 10/06/2022 1606 Previous diagnosis: Severe, Obstructive Sleep Apnea-Hypopnea Syndrome AHI: 33.7 (in 2022) Reason for follow up: first compliance Equipment type: CPAP (RESMED 11, s/u 07/2022) Equipment obtained from: Other ([facility]; got initial supplies) Mask style: Full face Mask brand: [employer] (Kike Full) Backup mask available: No (will keep old mask when replaced) Last cushion change: monthly Prior sleep studies: No Type of Sleep Study: Home sleep study (COMPLETED 06/22/22) HPI additional information: SERGO SANTANA was diagnosed to have severe, AHI 33.7, obstructive sleep apnea- hypopnea syndrome and returned today for CPAP therapy first compliance follow- up. Sleep Study - Results Type of Sleep Study: Home sleep study (COMPLETED 06/22/22) Prior sleep studies: No CPAP Compliance Data - Data Reviewed with Patient Average duration of nightly device use: 6 HRS 18 MIN Compliance rate %: 83 (08/28/22-09/26/22; /30 days used) Current pressure setting (cmH2O): 4-15 (median 5.7, avg 9, max 10.5) Average residual AHI: 2.8 Central apnea: 1.1 Obstructive apnea: 0.1 Hypopnea: 1.5 Average large leak: 3.9 L/min Subjective Missed days of use due to: reports: other (surgery/ in hospital) Patient concerns: reports: dry mouth, nose, throat (dry mouth, dry lips). denies: aerophagia, mask discomfort, air blowing in eyes, mask leak noise, condensation in mask/hose, nasal congestion, epistaxis Observed to snore while using device: No Current pressure setting perceived as: comfortable On therapy, patient: reports: sleeping better, awakening more refreshed, being more awake and alert during the day, more rested overall. denies: drowsiness while driving Initial [place] Sleepiness Scale score: 10 (in 2020) Current [place] Sleepiness Scale score: 8 (10/06/22) Allergies and Home Medications Known drug allergies: Yes (as listed) Drug allergies reviewed: Yes Home medication list reviewed: Yes (no changes) Allergy and home medication list: Allergies meperidine [From Demerol] Allergy (Verified 10/05/22 09:47) Nausea acetaminophen [From Vicodin] Adverse Reaction (Verified 10/05/22 09:47) Unknown hydrocodone [From Vicodin] Adverse Reaction (Verified 10/05/22 09:47) Unknown Review of Systems Review of systems same as previous: No (spine surgery/hardware removal 09/13/22) Physical Exam Vital signs obtained and entered by: ARLENE Argueta MA Blood Pressure: 132/80 (LEFT ARM) Cuff size: regular Heart Rate: 98 O2 Saturation: 93 Height: 6 ft 2 in Weight: 237 lb 9.6 oz Body Mass Index: 30.4 BMI Classification: Obese Impression and Plan 1. Obstructive Sleep Apnea-Hypopnea Syndrome, severe, with good treatment compliance and good apnea control. On CPAP therapy, the patient has better sleep quality and is more rested overall. He has been having dry mouth and lips about 80% of the time. He may be oral venting. I advised him to try to keep mouth closed. Oral dryness can be reduced by adjusting humidity setting higher or heated hose lower or by adjusting both settings. Patient advised that chronic oral dryness can affect dental health. The patients pressure will be changed to autoCPAP 9-11 cmH20 to reflect pressure being used. Patient advised to contact me if pressure change is uncomfortable so that it can be adjusted. Goals for apnea control discussed. Patient's apnea severity and rationale for treatment to reduce apnea, improve sleep quality and reduce cardiovascular and cerebrovascular events was reviewed. 2. Obesity, unspecified. Currently patients BMI is 30.4. Obesity increases the risk of apnea, CPAP pressure requirements and overall health risks especially cardiovascular and diabetes. Thus patient is advised to lose weight. * Change auto CPAP pressure to 9-11 cmH2O * Notify me if snoring with mask or feeling that the pressure is too much or too little * Attempt to lose weight * Call this office if any problems using CPAP * Return for follow up in 1-2 months, or sooner if concerns arise Counseling Topics: Spare mask, Weight loss health impact Visit Type: In Office Time Spent with Patient (minutes): 16 Provider Statement: I spent 100% of the Face to Face Visit with the patient with greater than 50% spent counseling the patient and coordination of care.
[2022-10-06 16:38] VITALS: BP 132/80; O2SAT 93
== END 2022-10-06 16:07 | disposition home or self-care (01) ==
LOC: SC 16:06
PROVIDERS: ATTEND Nurse Practitioner Family
DX: G47.33 Obstructive sleep apnea (adult) (pediatric) (principal); E66.9 Obesity, unspecified; Z68.30 Body mass index [BMI] 30.0-30.9, adult
CPT/HCPCS: 99212

== ENCOUNTER 2022-12-07 16:18 | Outpatient (CLI) | payer BC ==
--- NOTE | 2022-12-07 16:40 | Sleep Patient Instructions ---
Sleep Center Visit Summary - Patient Visit Information Reason for Visit: 2-month follow-up for PAP therapy - Patient Instructions Additional Instructions: You were here for follow up of CPAP therapy. You will be continued on CPAP therapy with pressure at 9-11 cmH2O. You should follow up with sleep care in 3 months. You may contact us sooner for any questions or concerns. - Clinic Information Contact: [facility] [address] [place] [id number] [email or web address] T: [phone]
--- NOTE | 2022-12-07 16:46 | SLEEP CARE CONSULTATION ---
Information from patient questionnaire entered by Arlene De Oliveira. I have reviewed and concur with the information entered by Arlene De Oliveira. This document represents the service I personally performed and the decisions made by me, Mona Holt ARNP. History of Present Illness Service Date and Time: 12/07/2022 1620 Previous diagnosis: Severe, Obstructive Sleep Apnea-Hypopnea Syndrome AHI: 33.7 (05/2022) Reason for follow up: other (2 MONTH F/U) Equipment type: CPAP (RESMED Airsense 11, s/u 08/04/2022) Equipment obtained from: Other ([facility]; getting supplies) Mask style: Full face (Kike Full, large cushion) Backup mask available: Yes (old mask) Last cushion change: 1 month Prior sleep studies: No Type of Sleep Study: Home sleep study (COMPLETED 06/22/22) HPI additional information: SERGO SANTANA was diagnosed to have severe, AHI 33.7, obstructive sleep apnea- hypopnea syndrome and returned today for CPAP therapy two month follow-up. Sleep Study - Results Type of Sleep Study: Home sleep study (COMPLETED 06/22/22) Prior sleep studies: No CPAP Compliance Data - Data Reviewed with Patient Average duration of nightly device use: 6 HRS 22 MINS Compliance rate %: 72 (10/04/22-12/02/22; 50/60 days used) Current pressure setting (cmH2O): 9-11 Average residual AHI: 1.6 Central apnea: 0.5 Obstructive apnea: 0.1 Hypopnea: 0.9 Average large leak: 6.6 L/min Subjective Missed days of use due to: reports: illness (cold symptoms), other (some days just doesn't put on) Patient concerns: reports: air blowing in eyes, condensation in mask/hose, other (headaches, just since being sick, sinus headache). denies: aerophagia, mask discomfort, mask leak noise, nasal congestion, dry mouth, nose, throat, epistaxis Observed to snore while using device: No Current pressure setting perceived as: comfortable On therapy, patient: reports: sleeping better. denies: drowsiness while driving Initial [place] Sleepiness Scale score: 10 (in 2020) Current [place] Sleepiness Scale score: 7 (12/07/22) Allergies and Home Medications Known drug allergies: Yes (as listed) Drug allergies reviewed: Yes Home medication list reviewed: Yes (no changes) Allergy and home medication list: Allergies meperidine [From Demerol] Allergy (Verified 12/06/22 10:29) Nausea acetaminophen [From Vicodin] Adverse Reaction (Verified 12/06/22 10:29) Unknown hydrocodone [From Vicodin] Adverse Reaction (Verified 12/06/22 10:29) Unknown Review of Systems Review of systems same as previous: Yes (NO CHANGE) Physical Exam Vital signs obtained and entered by: ARLENE Argueta MA Blood Pressure: 128/80 (RIGHT ) Cuff size: wrist Heart Rate: 73 O2 Saturation: 97 Height: 6 ft 2 in Weight: 242 lb 9.6 oz Body Mass Index: 31.1 BMI Classification: Obese Impression and Plan 1. Obstructive Sleep Apnea-Hypopnea Syndrome, severe, with good treatment compliance and good apnea control. On CPAP therapy, the patient has better sleep quality. He has significant improvement of his sleep apnea and is tolerating CPAP well. He has had headaches in the morning for the last 3 weeks but had a recent viral illness with nasal congestion. He may just have some sinus congestion contributing to headaches. He also has had some condensation in the mask and tubing. He has tried to adjust the heated hose and humidity but has not resolved completely. He states he does sleep in a cold room and I advised him to try a hose cover to reduce condensation from cold air and warm humidified air mixing in his tubing. He voiced understanding and agreement. Patient's apnea severity and rationale for treatment to reduce apnea, improve sleep quality and reduce cardiovascular and cerebrovascular events was reviewed. 2. Obesity, unspecified. Currently patients BMI is 31.1. Obesity increases the risk of apnea, CPAP pressure requirements and overall health risks especially cardiovascular and diabetes. Thus patient is advised to lose weight. * Continue auto CPAP pressure at 9-11 cmH2O * Notify me if snoring with mask or feeling that the pressure is too much or too little * Attempt to lose weight * Call this office if any problems using CPAP * Return for follow up in 3 months, or sooner if concerns arise Counseling Topics: Spare mask, Weight loss health impact Follow up with Sleep Care in: 3 months Visit Type: In Office Time Spent with Patient (minutes): 23 Provider Statement: I spent 100% of the Face to Face Visit with the patient with greater than 50% spent counseling the patient and coordination of care.
[2022-12-07 16:51] VITALS: BP 128/80; O2SAT 97
== END 2022-12-07 16:19 | disposition home or self-care (01) ==
LOC: SC 16:18
PROVIDERS: ATTEND Nurse Practitioner Family
DX: G47.33 Obstructive sleep apnea (adult) (pediatric) (principal); E66.9 Obesity, unspecified; Z68.31 Body mass index [BMI] 31.0-31.9, adult
CPT/HCPCS: 99212; 99213

== ENCOUNTER 2023-03-15 16:13 | Outpatient (CLI) | payer BC ==
--- NOTE | 2023-03-15 16:30 | Sleep Patient Instructions ---
Sleep Center Visit Summary - Patient Visit Information Reason for Visit: 3 month follow up for PAP therapy - Patient Instructions Additional Instructions: You were here for follow up of CPAP therapy. You will be continued on CPAP therapy with pressure at 9-11 cmH2O. You should follow up with sleep care in 12 months. You may contact us sooner for any questions or concerns. - Clinic Information Contact: [facility] [address] [place] [address] [email or web address] T: [phone]
--- NOTE | 2023-03-15 16:35 | SLEEP CARE CONSULTATION ---
Information from patient questionnaire entered by Arlene De Oliveira. I have reviewed and concur with the information entered by Arlene De Oliveira. This document represents the service I personally performed and the decisions made by me, Mona Holt ARNP. History of Present Illness Service Date and Time: 03/15/2023 1613 Previous diagnosis: Severe, Obstructive Sleep Apnea-Hypopnea Syndrome AHI: 33.7 (05/2022) Reason for follow up: three month (F/U) Equipment type: CPAP (RESMED Airsense 11, s/u 08/04/2022) Equipment obtained from: Other ([facility]; getting supplies) Mask style: Full face (Kike Full, large cushion) Mask brand: [employer] Backup mask available: Yes Last cushion change: 3 weeks ago Prior sleep studies: No Type of Sleep Study: Home sleep study (COMPLETED 06/22/22) HPI additional information: SERGO SANTANA was diagnosed to have severe, AHI 33.7, obstructive sleep apnea- hypopnea syndrome and returned today for CPAP therapy three month follow-up. Sleep Study - Results Type of Sleep Study: Home sleep study (COMPLETED 06/22/22) Prior sleep studies: No CPAP Compliance Data - Data Reviewed with Patient Average duration of nightly device use: 6 HRS 31 MINS Compliance rate %: 64 (12/11/22-03/10/23; 67/90 days used) Current pressure setting (cmH2O): 9-11 Average residual AHI: 0.8 Central apnea: 0.3 Obstructive apnea: 0.1 Average large leak: 9.5 L/min Subjective Missed days of use due to: reports: mask issues, illness (cold sores spreading on mouth) Patient concerns: reports: dry mouth, nose, throat (occasionally, vaishnavi since colder weather). denies: aerophagia, mask discomfort, air blowing in eyes, mask leak noise, condensation in mask/hose, nasal congestion, epistaxis Observed to snore while using device: No Current pressure setting perceived as: comfortable On therapy, patient: reports: sleeping better, awakening more refreshed, being more awake and alert during the day, more rested overall. denies: drowsiness while driving Initial [place] Sleepiness Scale score: 10 (in 2020) Current [place] Sleepiness Scale score: 10 (03/15/23) Allergies and Home Medications Known drug allergies: Yes (as listed) Drug allergies reviewed: Yes Home medication list reviewed: Yes (no changes) Allergy and home medication list: Allergies meperidine [From Demerol] Allergy (Verified 03/11/23 12:13) Nausea acetaminophen [From Vicodin] Adverse Reaction (Verified 03/11/23 12:13) Unknown hydrocodone [From Vicodin] Adverse Reaction (Verified 03/11/23 12:13) Unknown Review of Systems Review of systems same as previous: Yes (no changes) Physical Exam Vital signs obtained and entered by: ARLENE Argueta MA Blood Pressure: 151/84 (LEFT ARM) Cuff size: regular Heart Rate: 90 O2 Saturation: 97 Height: 6 ft 2 in Weight: 239 lb 9.6 oz Body Mass Index: 30.7 BMI Classification: Obese Impression and Plan 1. Obstructive Sleep Apnea-Hypopnea Syndrome, severe, with good treatment compliance and good apnea control. On CPAP therapy, the patient has better sleep quality and is more rested overall. His compliance is reduce because he had a cold sore breakout that seemed to be prolonged with the CPAP mask. He stopped used it for a few days and resumed after the cold sores resolved. He has significant improvement of his sleep apnea and is satisfied with current CPAP therapy. He has had some mild oral dryness but trying to adjust the humidifier seems to cause more issues, so he has left it on Auto. I advised him to try a humidifier in his sleeping room or even some over the counter oral moisturizers like Xylimelts as needed. He voiced understanding. Patient's apnea severity and rationale for treatment to reduce apnea, improve sleep quality and reduce cardiovascular and cerebrovascular events was reviewed. 2. Obesity, unspecified. Currently patients BMI is 30.7. Obesity increases the risk of apnea, CPAP pressure requirements and overall health risks especially cardiovascular and diabetes. Thus patient is advised to lose weight. * Continue auto CPAP pressure at 9-11 cmH2O * Notify me if snoring with mask or feeling that the pressure is too much or too little * Attempt to lose weight * Call this office if any problems using CPAP * Return for follow up in 12 months, or sooner if concerns arise Counseling Topics: Spare mask, Weight loss health impact Follow up with Sleep Care in: 1 year Visit Type: In Office Time Spent with Patient (minutes): 17 Provider Statement: I spent 100% of the Face to Face Visit with the patient with greater than 50% spent counseling the patient and coordination of care.
[2023-03-15 16:36] VITALS: BP 151/84; O2SAT 97
== END 2023-03-15 16:14 | disposition home or self-care (01) ==
LOC: SC 16:13
PROVIDERS: ATTEND Nurse Practitioner Family
DX: G47.33 Obstructive sleep apnea (adult) (pediatric) (principal); E66.9 Obesity, unspecified; Z68.30 Body mass index [BMI] 30.0-30.9, adult
CPT/HCPCS: 99212

== ENCOUNTER 2023-08-10 07:37 | Outpatient (CLI) | payer BC ==
[2023-08-10 12:24] LABS: BASOPHILS % (AUTO) 0.7 %; EOSINOPHILS # (AUTO) 0.2 10^3/uL (0.0-0.7); EOSINOPHILS % (AUTO) 2.7 %; HCT - HEMATOCRIT 44.9 % (42.0-52.0); HGB - HEMOGLOBIN 14.1 g/dL (14.0-18.0); LYMPHOCYTES # (AUTO) 1.3 10^3/uL (1.5-3.5); MEAN CORPUSCULAR HGB CONC 31.4 g/dL (32.0-36.0); MEAN CORPUSCULAR VOLUME 85.9 fL (80.0-94.0); MEAN PLATELET VOLUME 11.4 fL (7.4-11.4); MONOCYTES # (AUTO) 0.6 10^3/uL (0.0-1.0); MONOCYTES % (AUTO) 10.5 %; NEUTROPHILS # (AUTO) 3.5 10^3/uL (1.5-6.6); NEUTROPHILS % (AUTO) 62.7 %; PLT - PLATELET COUNT 245 10^3/uL (130-450); RED BLOOD COUNT 5.23 10^6/uL (4.70-6.10); RED CELL DISTRIBUTION WIDTH 13.6 % (12.0-15.0); WHITE BLOOD COUNT 5.5 x10^3/uL (4.8-10.8)
[2023-08-10 12:48] LABS: ALBUMIN 4.3 g/dL (3.2-5.5); ALBUMIN/GLOBULIN RATIO 1.9 (1.0-2.2); ALKALINE PHOSPHATASE 70 IU/L (42-121); ALT ALANINE AMINOTRANSFERASE 35 IU/L (10-60); AST ASPARTATE AMINOTRANSFERASE 26 IU/L (10-42); BILIRUBIN,TOTAL 0.5 mg/dL (0.2-1.0); BUN - BLOOD UREA NITROGEN 34 mg/dL (6-20); CALCIUM 9.4 mg/dL (8.5-10.3); CARBON DIOXIDE - CO2 29 mmol/L (21-32); CHLORIDE 108 mmol/L (101-111); CHOL/HDL RATIO 4.2 (<5.0); CHOLESTEROL 176 mg/dL; GFR - MDRD 77 (>89); GLUCOSE 120 mg/dL (74-104); HDL CHOLESTEROL 42 mg/dL; LDL CHOLESTEROL,CALCULATED 97 mg/dL; LDL/HDL RATIO 2.3 (<3.6); POTASSIUM 4.7 mmol/L (3.5-4.5); SODIUM 141 mmol/L (135-145); TOTAL PROTEIN 6.6 g/dL (6.4-8.9); TRIGLYCERIDES 186 mg/dL (48-352); VLDL CHOLESTEROL 37 mg/dL
[2023-08-10 12:53] LABS: THYROID STIMULATING HORMONE 1.06 uIU/mL (0.34-5.60)
[2023-08-10 13:12] LABS: ESTIMATED AVERAGE GLUCOSE 105 mg/dL (70-100); HEMOGLOBIN A1c% 5.3 % (4.27-6.07)
== END 2023-08-10 07:38 | disposition home or self-care (01) ==
LOC: LAB.N 07:37
PROVIDERS: ATTEND Physician Assistant Medical
DX: Z00.00 Encounter for general adult medical examination without abnormal findings (principal); E78.5 Hyperlipidemia, unspecified; R73.9 Hyperglycemia, unspecified; Z12.5 Encounter for screening for malignant neoplasm of prostate
CPT/HCPCS: 36415; 80053; 80061; 83036; 83721; 84153; 84443; 85025

== ENCOUNTER 2023-08-30 06:58 | Outpatient (CLI) | payer BC ==
--- NOTE | 2023-08-30 09:58 | Ultrasound Report ---
PROCEDURE: Abdomen Complete INDICATIONS: ABD PAIN TECHNIQUE: Real-time scanning was performed of the abdominal and retroperitoneal organs, with image documentatio n. COMPARISON: None. FINDINGS: Liver: Liver is normal in size. Increased liver parenchymal echotexture is seen. No discrete solid a ppearing hepatic lesion. Gallbladder: No gallstones, sludge, wall thickening or pericholecystic edema. Biliary ducts: Intrahepatic bile ducts are non-dilated. Extrahepatic bile duct caliber measures 5.0 mm. Normal is 6-7 mm or less in diameter, or 10 mm or less post-cholecystectomy. Pancreas: Visualized portions of the pancreas are sonographically normal. Spleen: Spleen is slightly enlarged and is homogeneous in echotexture. Kidneys: Kidneys are normal in size and echotexture. Right kidney measures 11.0 cm long; left kidne y measures 11.1 cm long. No hydronephrosis or nephrolithiasis. No solid masses. No complex renal cy stic lesions which require follow-up. Aorta: Visualized aorta is normal in caliber at less than 3 cm. Iliacs: Proximal common iliac arteries are normal in caliber at less than 2.5 cm. IVC: Intrahepatic inferior vena cava is patent. Miscellaneous: No free abdominal fluid. IMPRESSION: 1. Hepatic steatosis, no discrete hepatic lesion. 2. Borderline splenomegaly. No discrete splenic lesion. 3. Rest of the exam is unremarkable. Reviewed by: Fabian Vega MD on 08/30/2023 9:56 AM PDT Approved by: Fabian Vega MD on 08/30/2023 9:56 AM PDT Station ID: [id number]
== END 2023-08-30 06:59 | disposition home or self-care (01) ==
LOC: DI 06:58
PROVIDERS: ATTEND Physician Assistant Medical
DX: R10.84 Generalized abdominal pain (principal); K76.0 Fatty (change of) liver, not elsewhere classified; R16.1 Splenomegaly, not elsewhere classified